=== PATIENT | female | born 1955 | race Caucasian/White ===

== ENCOUNTER 2021-02-24 15:33 | Inpatient (IN) ==
[2021-02-24] MEDS ORDERED: Isovue-370 500 ML BOTTLE IVP ONE (16:18)
[2021-02-24] MEDS ORDERED: Ondansetron 4 MG/2 ML VIAL IVP PRN ×2 (16:19→20:41)
[2021-02-24] MEDS ORDERED: Pantoprazole 40 MG VIAL IVP ONE (16:19)
[2021-02-24] MEDS ORDERED: Famotidine 20 MG/2 ML VIAL IVP ONE (16:19)
[2021-02-24] MEDS ORDERED: 0.9 % Sodium Chloride 500 ML IV ONE (16:19)
[2021-02-24 16:36] LABS: Basophils % 0.2 %; Eosinophils # 0.1 K/mcL (0.0-0.6); Eosinophils % 0.6 %; Hematocrit 40.7 % (35.3-44.9); Hemoglobin 13.7 g/dL (11.5-15.4); Immature Granulocytes % 0.4 % (0-4); Lymphocytes # 2.2 K/mcL (0.6-4.6); Lymphocytes % 17.5 %; Mean Corpuscular HGB Conc 33.7 g/dL (31.6-35.5); Mean Corpuscular Hemoglobin 31.5 pg (28.0-33.3); Mean Corpuscular Volume 93.6 fL (83.0-100.0); Mean Platelet Volume 10.4 fL (9.4-12.4); Monocytes # 1.1 K/mcL (0.0-1.3); Monocytes % 8.5 %; Neutrophils # 9.2 K/mcL (1.6-8.9); Platelet Count 405 K/mcL (140-400); Red Blood Count 4.35 M/mcL (3.82-4.97); Segmented Neutrophils % 72.8 %; White Blood Count 12.7 K/mcL (4.3-11.1)
[2021-02-24 16:45] LABS: Prothrombin Time 10.8 Seconds (9.4-12.1)
[2021-02-24 16:48] LABS: Activated Partial Thrombo Time 31.2 Seconds (26.0-36.0)
[2021-02-24 16:53] LABS: Bilirubin,Urine Negative (Negative); Blood,Urine Negative (Negative); Clarity,Urine Clear (Clear); Color,Urine Light-Yellow (Yellow); Glucose,Urine (UA) Normal (Normal); Ketones,Urine Negative (Negative); Leukocyte Esterase,Urine Negative (Negative); Nitrite,Urine Negative (Negative); Protein,Urine Negative (Neg-Trace); Specific Gravity,Urine 1.005 (1.010-1.025); Urobilinogen,Urine Normal (Normal)
[2021-02-24 18:26] LABS: Alanine Aminotransferase 16 Units/L (7-52); Albumin 2.7 g/dL (3.5-5.7); Alkaline Phosphatase 98 Units/L (34-104); Amylase 25 Units/L (29-103); Aspartate Amino Transferase 17 Units/L (13-39); BUN/Creatinine Ratio 29 (6-26); Bilirubin,Direct 0.2 mg/dL (0.0-0.2); Bilirubin,Indirect 0.3 mg/dL (0.0-1.0); Bilirubin,Total 0.5 mg/dL (0.3-1.0); Blood Urea Nitrogen 13 mg/dL (8-23); Calcium 8.1 mg/dL (8.6-10.3); Carbon Dioxide 30 mEq/L (23-29); Chloride 104 mEq/L (98-107); Globulin 2.7 g/dL (2.4-3.5); Glucose 143 mg/dL (70-105); Lipase 12 Units/L (11-82); Osmolality,Calculated 289 (280-300); Potassium 3.7 mEq/L (3.5-5.1); Sodium 138 mEq/L (136-145); Total Protein 5.4 g/dL (6.4-8.9); eGFR For African Americans > 60 (> 60); eGFR For Non-African Americans > 60 (> 60)
[2021-02-24] MEDS ORDERED: Naloxone 0.4 MG/ML INJ IVP PRN (20:41)
[2021-02-24] MEDS ORDERED: 0.9 % Sodium Chloride 1,000 ML IVC SCH (23:15)
[2021-02-24] MEDS: Nicotine 21 MG PATCH.TD24 TD SCH (23:32)
[2021-02-25 05:08] LABS: Basophils % 0.2 %; Eosinophils # 0.1 K/mcL (0.0-0.6); Eosinophils % 0.7 %; Hematocrit 40.1 % (35.3-44.9); Hemoglobin 13.6 g/dL (11.5-15.4); Immature Granulocytes % 0.3 % (0-4); Lymphocytes # 2.2 K/mcL (0.6-4.6); Lymphocytes % 17.8 %; Mean Corpuscular HGB Conc 33.9 g/dL (31.6-35.5); Mean Corpuscular Hemoglobin 31.8 pg (28.0-33.3); Mean Corpuscular Volume 93.7 fL (83.0-100.0); Mean Platelet Volume 9.8 fL (9.4-12.4); Monocytes # 1.1 K/mcL (0.0-1.3); Monocytes % 9.4 %; Neutrophils # 8.7 K/mcL (1.6-8.9); Platelet Count 338 K/mcL (140-400); Red Blood Count 4.28 M/mcL (3.82-4.97); Red Cell Distribution Width 14.8 % (11.5-14.5); Segmented Neutrophils % 71.6 %; White Blood Count 12.1 K/mcL (4.3-11.1)
[2021-02-25 05:28] LABS: BUN/Creatinine Ratio 22 (6-26); Blood Urea Nitrogen 9 mg/dL (8-23); Carbon Dioxide 30 mEq/L (23-29); Chloride 105 mEq/L (98-107); Glucose 99 mg/dL (70-105); Magnesium 1.9 mg/dL (1.6-2.6); Osmolality,Calculated 287 (280-300); Potassium 3.6 mEq/L (3.5-5.1); Sodium 139 mEq/L (136-145); eGFR For African Americans > 60 (> 60); eGFR For Non-African Americans > 60 (> 60)
[2021-02-25 08:19] LABS: Estimated Average Glucose 114 mg/dl; Hemoglobin A1C 5.6 %
[2021-02-25] MEDS: Pantoprazole 40 MG VIAL IVP SCH (09:55)
[2021-02-25] MEDS: amLODIPine 5 MG TABLET PO SCH (13:14)
[2021-02-25] MEDS: D5% in 0.45% NACL w KCl 10 MEQ/1,000 ML MLS IVC SCH (13:14)
[2021-02-25 15:16] LABS: % Iron Saturation 16 % (15-50); Iron 25 mcg/dL (50-170); Transferrin 112 mg/dL (203-362)
[2021-02-25 15:33] LABS: C-Reactive Protein 23 mg/L (Less than 10)
[2021-02-25 15:35] LABS: Ferritin 248 ng/mL (10-120)
[2021-02-25 15:41] LABS: Folate 22.3 ng/mL (3.0-16.0)
[2021-02-25] MEDS: *HR* Heparin 5,000 UNIT/ML VIAL SQ SCH (17:45)
[2021-02-25] MEDS: Nicotine 21 MG PATCH.TD24 TD SCH (22:11)
[2021-02-26 02:55] LABS: Hematocrit 40.4 % (35.3-44.9); Hemoglobin 13.5 g/dL (11.5-15.4); Mean Corpuscular HGB Conc 33.4 g/dL (31.6-35.5); Mean Corpuscular Hemoglobin 31.2 pg (28.0-33.3); Mean Corpuscular Volume 93.3 fL (83.0-100.0); Platelet Count 363 K/mcL (140-400); Red Blood Count 4.33 M/mcL (3.82-4.97); Red Cell Distribution Width 14.9 % (11.5-14.5); White Blood Count 10.4 K/mcL (4.3-11.1)
[2021-02-26 03:18] LABS: BUN/Creatinine Ratio 11 (6-26); Blood Urea Nitrogen 4 mg/dL (8-23); Calcium 7.9 mg/dL (8.6-10.3); Carbon Dioxide 29 mEq/L (23-29); Chloride 103 mEq/L (98-107); Glucose 119 mg/dL (70-105); Magnesium 1.7 mg/dL (1.6-2.6); Osmolality,Calculated 282 (280-300); Phosphorous 2.6 mg/dL (2.7-4.5); Potassium 3.6 mEq/L (3.5-5.1); Sodium 137 mEq/L (136-145); eGFR For African Americans > 60 (> 60); eGFR For Non-African Americans > 60 (> 60)
[2021-02-26] MEDS: D5% in 0.45% NACL w KCl 10 MEQ/1,000 ML MLS IVC SCH ×2 (03:33→16:36)
[2021-02-26] MEDS: *HR* Heparin 5,000 UNIT/ML VIAL SQ SCH ×2 (04:58→19:19)
[2021-02-26] MEDS: Pantoprazole 40 MG VIAL IVP SCH (08:07)
[2021-02-26] MEDS: amLODIPine 5 MG TABLET PO SCH (08:08)
[2021-02-26] MEDS ORDERED: Potassium Phosphate 44 MEQ in 0.9 % Sodium Chloride 250 ML IVPB ONE (08:30)
[2021-02-26] MEDS ORDERED: Lidocaine -MPF 2% 5 ML VIAL ONE (13:36)
[2021-02-26] MEDS: Piperacillin/Tazobactam 3.375 GM in 0.9 % Sodium Chloride Mini Bag 100 ML IVPB SCH (17:19)
[2021-02-26] MEDS: Nicotine 21 MG PATCH.TD24 TD SCH (19:33)
[2021-02-27] MEDS: Piperacillin/Tazobactam 3.375 GM in 0.9 % Sodium Chloride Mini Bag 100 ML IVPB SCH ×4 (00:48→23:58)
[2021-02-27] MEDS ORDERED: Hyaluronidase 200 UNIT in 0.9 % Sodium Chloride 10 ML SQ ONE (01:07)
[2021-02-27] MEDS: *HR* Heparin 5,000 UNIT/ML VIAL SQ SCH ×2 (05:12→18:03)
[2021-02-27] MEDS: D5% in 0.45% NACL w KCl 10 MEQ/1,000 ML MLS IVC SCH ×2 (05:22→10:46)
[2021-02-27 05:51] LABS: Basophils % 0.3 %; Eosinophils # 0.1 K/mcL (0.0-0.6); Eosinophils % 1.2 %; Hematocrit 34.8 % (35.3-44.9); Hemoglobin 12.2 g/dL (11.5-15.4); Immature Granulocytes % 0.3 % (0-4); Lymphocytes # 2.1 K/mcL (0.6-4.6); Lymphocytes % 20.3 %; Mean Corpuscular HGB Conc 35.1 g/dL (31.6-35.5); Mean Corpuscular Hemoglobin 32.5 pg (28.0-33.3); Mean Corpuscular Volume 92.8 fL (83.0-100.0); Mean Platelet Volume 10.3 fL (9.4-12.4); Monocytes % 9.2 %; Neutrophils # 7.3 K/mcL (1.6-8.9); Platelet Count 346 K/mcL (140-400); Red Blood Count 3.75 M/mcL (3.82-4.97); Red Cell Distribution Width 15.2 % (11.5-14.5); Segmented Neutrophils % 68.7 %; White Blood Count 10.6 K/mcL (4.3-11.1)
[2021-02-27 05:53] LABS: Hematocrit 34.8 % (35.3-44.9); Hemoglobin 12.2 g/dL (11.5-15.4); Mean Corpuscular HGB Conc 35.1 g/dL (31.6-35.5); Mean Corpuscular Hemoglobin 32.4 pg (28.0-33.3); Mean Corpuscular Volume 92.6 fL (83.0-100.0); Mean Platelet Volume 10.3 fL (9.4-12.4); Platelet Count 336 K/mcL (140-400); Red Blood Count 3.76 M/mcL (3.82-4.97); Red Cell Distribution Width 15.1 % (11.5-14.5); White Blood Count 10.5 K/mcL (4.3-11.1)
[2021-02-27 07:17] LABS: BUN/Creatinine Ratio 9 (6-26); Blood Urea Nitrogen 3 mg/dL (8-23); Calcium 7.8 mg/dL (8.6-10.3); Carbon Dioxide 29 mEq/L (23-29); Chloride 108 mEq/L (98-107); Glucose 78 mg/dL (70-105); Osmolality,Calculated 289 (280-300); Phosphorous 3.1 mg/dL (2.7-4.5); Potassium 3.4 mEq/L (3.5-5.1); Sodium 142 mEq/L (136-145); eGFR For African Americans > 60 (> 60); eGFR For Non-African Americans > 60 (> 60)
[2021-02-27] MEDS: Pantoprazole 40 MG VIAL IVP SCH (08:51)
[2021-02-27] MEDS: amLODIPine 5 MG TABLET PO SCH (08:52)
[2021-02-27] MEDS: Gabapentin 400 MG CAPSULE PO SCH ×2 (14:56→20:01)
[2021-02-27] MEDS: Nicotine 21 MG PATCH.TD24 TD SCH (20:01)
[2021-02-28 04:56] LABS: Hematocrit 33.5 % (35.3-44.9); Hemoglobin 11.3 g/dL (11.5-15.4); Mean Corpuscular HGB Conc 33.7 g/dL (31.6-35.5); Mean Corpuscular Hemoglobin 31.8 pg (28.0-33.3); Mean Corpuscular Volume 94.4 fL (83.0-100.0); Mean Platelet Volume 10.5 fL (9.4-12.4); Platelet Count 311 K/mcL (140-400); Red Blood Count 3.55 M/mcL (3.82-4.97); Red Cell Distribution Width 15.2 % (11.5-14.5); White Blood Count 6.9 K/mcL (4.3-11.1)
[2021-02-28 05:16] LABS: BUN/Creatinine Ratio 12 (6-26); Blood Urea Nitrogen 4 mg/dL (8-23); Calcium 7.3 mg/dL (8.6-10.3); Carbon Dioxide 26 mEq/L (23-29); Chloride 114 mEq/L (98-107); Glucose 90 mg/dL (70-105); Magnesium 1.8 mg/dL (1.6-2.6); Osmolality,Calculated 278 (280-300); Phosphorous 2.8 mg/dL (2.7-4.5); Potassium 3.2 mEq/L (3.5-5.1); Sodium 136 mEq/L (136-145); eGFR For African Americans > 60 (> 60); eGFR For Non-African Americans > 60 (> 60)
[2021-02-28] MEDS: *HR* Heparin 5,000 UNIT/ML VIAL SQ SCH ×2 (05:30→16:33)
[2021-02-28] MEDS: D5% in 0.45% NACL w KCl 10 MEQ/1,000 ML MLS IVC SCH ×2 (05:31→16:34)
[2021-02-28] MEDS ORDERED: Vitamin B Complex/Vit C/Vit E 1 EACH TABLET PO SCH (09:00)
[2021-02-28] MEDS ORDERED: Lidocaine -MPF 2% 5 ML VIAL ONE (09:32)
[2021-02-28] MEDS ORDERED: *HR* Propofol 200 MG/20 ML VIAL IVP ONE (09:33)
[2021-02-28] MEDS ORDERED: *HR* FentaNYL (PF) 100 MCG/2 ML VIAL ONE (09:33)
[2021-02-28] MEDS ORDERED: *HR* OxyCODONE Immed Rel 5 MG TABLET PO PRN ×2 (09:40→15:10)
[2021-02-28] MEDS ORDERED: *HR* HYDROmorphone PF 0.5 MG/0.5 ML SYRINGE IVP PRN ×2 (09:40→15:10)
[2021-02-28] MEDS ORDERED: Ondansetron 4 MG/2 ML VIAL IVP PRN ×2 (09:40→15:10)
[2021-02-28] MEDS ORDERED: Bupivacaine/Clonidine Syringe 20 ML, Syringe LUER-LOK 1 EACH TP ONE (10:30)
[2021-02-28] MEDS: Piperacillin/Tazobactam 3.375 GM in 0.9 % Sodium Chloride Mini Bag 100 ML IVPB SCH ×2 (10:44→16:34)
[2021-02-28 10:51] LABS: Immunoglobulin A (CELIAC) 296 mg/dL (68-408); Tissue Transglutaminase IgA <2 U/mL (0-3)
[2021-02-28 10:56] LABS: C-Reactive Protein 21 mg/L (Less than 10)
[2021-02-28] MEDS: Pantoprazole 40 MG VIAL IVP SCH (13:14)
[2021-02-28] MEDS: Gabapentin 400 MG CAPSULE PO SCH ×3 (13:15→20:52)
[2021-02-28] MEDS: amLODIPine 5 MG TABLET PO SCH (13:15)
[2021-02-28] MEDS ORDERED: Naloxone 0.4 MG/ML INJ IVP PRN (15:10)
[2021-02-28] MEDS: Nicotine 21 MG PATCH.TD24 TD SCH (20:53)
[2021-03-01] MEDS: Piperacillin/Tazobactam 3.375 GM in 0.9 % Sodium Chloride Mini Bag 100 ML IVPB SCH ×3 (00:38→17:19)
[2021-03-01] MEDS: *HR* Heparin 5,000 UNIT/ML VIAL SQ SCH ×2 (05:15→17:10)
[2021-03-01] MEDS: D5% in 0.45% NACL w KCl 10 MEQ/1,000 ML MLS IVC SCH (05:17)
[2021-03-01] MEDS: Pantoprazole 40 MG VIAL IVP SCH (10:51)
[2021-03-01] MEDS: Vitamin B Complex/Vit C/Vit E 1 EACH TABLET PO SCH (10:51)
[2021-03-01] MEDS: amLODIPine 5 MG TABLET PO SCH ×2 (10:51→11:12)
[2021-03-01] MEDS: Gabapentin 400 MG CAPSULE PO SCH ×3 (10:51→20:55)
[2021-03-01] MEDS: Zinc Gluconate 100 MG Tablet PO SCH (10:52)
[2021-03-01] MEDS: Nicotine 21 MG PATCH.TD24 TD SCH (20:55)
[2021-03-02] MEDS: Piperacillin/Tazobactam 3.375 GM in 0.9 % Sodium Chloride Mini Bag 100 ML IVPB SCH ×2 (00:48→11:07)
[2021-03-02] MEDS: D5% in 0.45% NACL w KCl 10 MEQ/1,000 ML MLS IVC SCH ×2 (00:48→09:48)
[2021-03-02] MEDS: *HR* Heparin 5,000 UNIT/ML VIAL SQ SCH ×2 (05:16→17:37)
[2021-03-02 05:57] LABS: eGFR For African Americans > 60 (> 60); eGFR For Non-African Americans > 60 (> 60)
[2021-03-02] MEDS: Vitamin B Complex/Vit C/Vit E 1 EACH TABLET PO SCH (09:47)
[2021-03-02] MEDS: Gabapentin 400 MG CAPSULE PO SCH ×3 (09:47→22:10)
[2021-03-02] MEDS: amLODIPine 5 MG TABLET PO SCH (09:48)
[2021-03-02] MEDS: Zinc Gluconate 100 MG Tablet PO SCH (09:49)
[2021-03-02] MEDS: Pantoprazole 40 MG VIAL IVP SCH (09:49)
[2021-03-02] MEDS: Nicotine 21 MG PATCH.TD24 TD SCH (22:45)
[2021-03-03] MEDS: *HR* Heparin 5,000 UNIT/ML VIAL SQ SCH ×2 (05:17→15:42)
[2021-03-03] MEDS: D5% in 0.45% NACL w KCl 10 MEQ/1,000 ML MLS IVC SCH ×3 (09:11→21:07)
[2021-03-03] MEDS: amLODIPine 5 MG TABLET PO SCH (09:11)
[2021-03-03] MEDS: Pantoprazole 40 MG VIAL IVP SCH (09:11)
[2021-03-03] MEDS: Vitamin B Complex/Vit C/Vit E 1 EACH TABLET PO SCH (09:11)
[2021-03-03] MEDS: Gabapentin 400 MG CAPSULE PO SCH ×3 (09:11→21:08)
[2021-03-03] MEDS: Zinc Gluconate 100 MG Tablet PO SCH (09:12)
[2021-03-03] MEDS: Ondansetron 4 MG/2 ML VIAL IVP PRN (12:12)
[2021-03-03] MEDS: Nicotine 21 MG PATCH.TD24 TD SCH (20:46)
[2021-03-04] MEDS: *HR* Heparin 5,000 UNIT/ML VIAL SQ SCH ×2 (06:34→18:05)
[2021-03-04] MEDS: Gabapentin 400 MG CAPSULE PO SCH ×3 (08:13→19:47)
[2021-03-04] MEDS: Vitamin B Complex/Vit C/Vit E 1 EACH TABLET PO SCH (08:13)
[2021-03-04] MEDS: Pantoprazole 40 MG VIAL IVP SCH (08:13)
[2021-03-04] MEDS: amLODIPine 5 MG TABLET PO SCH (08:13)
[2021-03-04] MEDS: Zinc Gluconate 100 MG Tablet PO SCH (08:48)
[2021-03-04] MEDS: D5% in 0.45% NACL w KCl 10 MEQ/1,000 ML MLS IVC SCH (10:27)
[2021-03-04] MEDS: Ondansetron 4 MG/2 ML VIAL IVP PRN (15:12)
[2021-03-04] MEDS ORDERED: amLODIPine 5 MG TABLET PO ONE (15:30)
[2021-03-04] MEDS: Nicotine 21 MG PATCH.TD24 TD SCH (20:02)
[2021-03-05] MEDS: D5% in 0.45% NACL w KCl 10 MEQ/1,000 ML MLS IVC SCH ×2 (00:43→14:14)
[2021-03-05] MEDS: *HR* Heparin 5,000 UNIT/ML VIAL SQ SCH (05:35)
[2021-03-05] MEDS ORDERED: amLODIPine 5 MG TABLET PO SCH (09:00)
[2021-03-05 09:07] LABS: Hemoglobin 12.4 g/dL (11.5-15.4); Mean Corpuscular HGB Conc 34.4 g/dL (31.6-35.5); Mean Corpuscular Hemoglobin 32.1 pg (28.0-33.3); Mean Corpuscular Volume 93.3 fL (83.0-100.0); Mean Platelet Volume 10.4 fL (9.4-12.4); Platelet Count 415 K/mcL (140-400); Red Blood Count 3.86 M/mcL (3.82-4.97); Red Cell Distribution Width 14.9 % (11.5-14.5); White Blood Count 9.3 K/mcL (4.3-11.1)
[2021-03-05 09:28] LABS: BUN/Creatinine Ratio 8 (6-26); Blood Urea Nitrogen 2 mg/dL (8-23); Carbon Dioxide 28 mEq/L (23-29); Chloride 104 mEq/L (98-107); Glucose 99 mg/dL (70-105); Osmolality,Calculated 278 (280-300); Potassium 3.7 mEq/L (3.5-5.1); Sodium 136 mEq/L (136-145); eGFR For African Americans > 60 (> 60); eGFR For Non-African Americans > 60 (> 60)
[2021-03-05] MEDS: Ondansetron 4 MG/2 ML VIAL IVP PRN (11:50)
[2021-03-05] MEDS: Vitamin B Complex/Vit C/Vit E 1 EACH TABLET PO SCH (11:50)
[2021-03-05] MEDS: Pantoprazole 40 MG VIAL IVP SCH (11:50)
[2021-03-05] MEDS: Gabapentin 400 MG CAPSULE PO SCH ×2 (11:50→14:13)
[2021-03-05] MEDS: Zinc Gluconate 100 MG Tablet PO SCH (11:51)
[2021-03-05 14:37] VITALS: BP 131/55; PULSE 69; TEMP 98.1; O2SAT 96
[2021-03-05 16:54] LABS: Influenza A PCR Negative (Negative); Influenza B PCR Negative (Negative); Resp. Syncytial Virus PCR Negative (Negative)
[2021-03-05 16:56] LABS: SARS-CoV-2 by PCR (In House) Negative (Negative)
[2021-03-06 13:02] LABS: Saccharomyces cerevisiae IgA 15.9 Units (0.0-24.9)
== END 2021-03-05 19:00 | disposition home or self-care (01) | DRG 981 ==
LOC: 3BNU 15:33 → EMEROOARM 15:33 → SUATTDRO 20:25 → 3BNU 21:05 → SUATTDRO 02-26 12:03
PROVIDERS: ADMIT Internal Medicine; ATTEND Registered Nurse
PROC: ENDOCBX (2021-02-26 14:05)

== ENCOUNTER 2021-04-21 13:04 | Inpatient (IN) ==
[2021-04-21] MEDS ORDERED: Ondansetron 4 MG/2 ML VIAL IVP ONE (13:19)
[2021-04-21] MEDS ORDERED: 0.9 % Sodium Chloride 1,000 ML IVC ONE ×2 (13:19→14:20)
[2021-04-21] MEDS ORDERED: Thiamine (B-1) 200 MG in 0.9 % Sodium Chloride 50 ML IVPB ONE (13:20)
[2021-04-21] MEDS ORDERED: Folic Acid 1 MG in 0.9 % Sodium Chloride 50 ML IVPB ONE (13:20)
[2021-04-21 13:56] LABS: Basophils % 0.2 %; Hematocrit 45.8 % (35.3-44.9); Hemoglobin 15.7 g/dL (11.5-15.4); Lymphocytes # 1.3 K/mcL (0.6-4.6); Lymphocytes % 6.7 %; Mean Corpuscular HGB Conc 34.3 g/dL (31.6-35.5); Mean Corpuscular Hemoglobin 32.4 pg (28.0-33.3); Mean Corpuscular Volume 94.4 fL (83.0-100.0); Mean Platelet Volume 10.6 fL (9.4-12.4); Monocytes # 0.9 K/mcL (0.0-1.3); Monocytes % 4.6 %; Neutrophils # 17.2 K/mcL (1.6-8.9); Platelet Count 350 K/mcL (140-400); Red Blood Count 4.85 M/mcL (3.82-4.97); Red Cell Distribution Width 14.5 % (11.5-14.5); Segmented Neutrophils % 87.5 %; White Blood Count 19.6 K/mcL (4.3-11.1)
[2021-04-21 14:21] LABS: Alanine Aminotransferase 26 Units/L (7-52); Albumin 2.6 g/dL (3.5-5.7); Albumin/Globulin Ratio 0.9 (1.1-2.2); Alkaline Phosphatase 154 Units/L (34-104); Aspartate Amino Transferase 25 Units/L (13-39); BUN/Creatinine Ratio 22 (6-26); Bilirubin,Total 0.8 mg/dL (0.3-1.0); Blood Urea Nitrogen 10 mg/dL (8-23); Calcium 8.4 mg/dL (8.6-10.3); Carbon Dioxide 25 mEq/L (23-29); Chloride 102 mEq/L (98-107); Creatine Kinase 38 Units/L (30-223); Ethanol < 10 mg/dL (Less than 10); Globulin 2.9 g/dL (2.4-3.5); Glucose 134 mg/dL (70-105); Lipase 22 Units/L (11-82); Magnesium 2.1 mg/dL (1.6-2.6); Osmolality,Calculated 285 (280-300); Potassium 3.7 mEq/L (3.5-5.1); Sodium 137 mEq/L (136-145); Total Protein 5.5 g/dL (6.4-8.9); Troponin I 0.03 ng/mL (< 0.04); eGFR For African Americans > 60 (> 60); eGFR For Non-African Americans > 60 (> 60)
[2021-04-21 17:47] LABS: Bacteria,Urine Few per hpf (None-Few); Bilirubin,Urine Negative (Negative); Blood,Urine Moderate (Negative); Clarity,Urine Clear (Clear); Color,Urine Light-Yellow (Yellow); Glucose,Urine (UA) Normal (Normal); Hyaline Casts,Urine Few per lpf (None Seen); Ketones,Urine Negative (Negative); Leukocyte Esterase,Urine Small (Negative); Mucus,Urine Few per lpf (None-Few); Nitrite,Urine Negative (Negative); Protein,Urine Negative (Neg-Trace); RBC,Urine 0-3 per hpf (0-3); Specific Gravity,Urine 1.009 (1.010-1.025); Squamous Epithelial Cell,Urine Few per hpf (None-Few); Urobilinogen,Urine Normal (Normal)
[2021-04-21] MEDS ORDERED: cefTRIAXone 1,000 MG in Water for inj. (sterile) 10 ML IVP ONE (17:50)
[2021-04-21] MEDS ORDERED: Acetaminophen 325 MG TABLET PO PRN (18:00)
[2021-04-21] MEDS ORDERED: Naloxone 0.4 MG/ML INJ IVP PRN (18:00)
[2021-04-21] MEDS ORDERED: Ondansetron 4 MG/2 ML VIAL IVP PRN (18:00)
[2021-04-21] MEDS ORDERED: Melatonin 3 MG TABLET PO PRN (18:00)
[2021-04-21] MEDS ORDERED: Ipratropium/Albuterol Neb 3 ML IH PRN (18:07)
[2021-04-21] MEDS ORDERED: *HR* LORazepam 2 MG/ML VIAL IVP PRN ×3 (18:09)
[2021-04-21 18:15] LABS: Amphetamine Screen,Urine Negative ng/mL (Cutoff=1000); Barbiturate Screen,Urine Negative ng/mL (Cutoff=200); Benzodiazepines Screen,Urine Negative ng/mL (Cutoff=200); Cannabinoid Screen,Urine Negative ng/mL (Cutoff = 50); Cocaine Screen,Urine Negative ng/mL (Cutoff= 300); Opiate Screen,Urine Negative ng/mL (Cutoff=300); Phencyclidine Screen,Urine Negative ng/mL (Cutoff=25)
[2021-04-21] MEDS ORDERED: Isovue-370 500 ML BOTTLE IVP ONE (18:17)
[2021-04-21 18:32] LABS: C-Reactive Protein 134 mg/L (Less than 10)
[2021-04-21] MEDS ORDERED: Dextrose Gel 15 GM/37.5 ML TUBE PO PRN ×2 (18:35)
[2021-04-21] MEDS ORDERED: D5% in Water 1,000 ML IVC PRN (18:35)
[2021-04-22] MEDS: NIFEdipine XL (24 HR) 60 MG TAB.ER.24 PO SCH ×2 (00:17→07:47)
[2021-04-22] MEDS: Lactobacillus 1 EACH CAP.SPRINK PO SCH ×3 (00:17→20:15)
[2021-04-22] MEDS: Piperacillin/Tazobactam 3.375 GM in 0.9 % Sodium Chloride Mini Bag 100 ML IVPB SCH ×3 (00:17→18:45)
[2021-04-22] MEDS: Ringers Solution, Lactated 1,000 ML IVC SCH ×2 (00:17→18:46)
[2021-04-22] MEDS: Calcium Gluconate 1gm/50mL 1 GM/50 ML BAG IVPB SCH ×2 (00:27→01:35)
[2021-04-22] MEDS: Vancomycin 500 MG in 0.9 % Sodium Chloride Mini Bag 100 ML IVPB SCH ×3 (01:18→20:15)
[2021-04-22 01:34] LABS: Basophils # 0.1 K/mcL (0.0-0.2); Basophils % 0.2 %; Hematocrit 45.8 % (35.3-44.9); Hemoglobin 15.5 g/dL (11.5-15.4); Immature Granulocytes % 0.5 % (0-4); Lymphocytes # 1.1 K/mcL (0.6-4.6); Lymphocytes % 4.6 %; Mean Corpuscular HGB Conc 33.8 g/dL (31.6-35.5); Mean Corpuscular Volume 94.6 fL (83.0-100.0); Mean Platelet Volume 9.9 fL (9.4-12.4); Monocytes # 0.8 K/mcL (0.0-1.3); Monocytes % 3.6 %; Platelet Count 374 K/mcL (140-400); Red Blood Count 4.84 M/mcL (3.82-4.97); Red Cell Distribution Width 14.6 % (11.5-14.5); Segmented Neutrophils % 91.1 %; White Blood Count 23.1 K/mcL (4.3-11.1)
[2021-04-22 01:44] LABS: INR 1.1; Prothrombin Time 12.5 Seconds (9.4-12.1)
[2021-04-22 02:05] LABS: Alanine Aminotransferase 25 Units/L (7-52); Albumin 2.6 g/dL (3.5-5.7); Albumin/Globulin Ratio 0.9 (1.1-2.2); Alkaline Phosphatase 146 Units/L (34-104); Aspartate Amino Transferase 25 Units/L (13-39); BUN/Creatinine Ratio 23 (6-26); Bilirubin,Total 0.6 mg/dL (0.3-1.0); Blood Urea Nitrogen 11 mg/dL (8-23); Calcium 8.1 mg/dL (8.6-10.3); Carbon Dioxide 26 mEq/L (23-29); Chloride 104 mEq/L (98-107); Glucose 108 mg/dL (70-105); Osmolality,Calculated 290 (280-300); Potassium 3.7 mEq/L (3.5-5.1); Sodium 140 mEq/L (136-145); Total Protein 5.6 g/dL (6.4-8.9); eGFR For African Americans > 60 (> 60); eGFR For Non-African Americans > 60 (> 60)
[2021-04-22] MEDS: *HR* Enoxaparin 40 MG/0.4 ML SYRINGE SQ SCH (05:18)
[2021-04-22] MEDS: Vitamin B Complex/Vit C/Vit E 1 EACH TABLET PO SCH (07:47)
[2021-04-22] MEDS: Thiamine (B-1) 100 MG TABLET PO SCH (07:47)
[2021-04-22] MEDS: Nicotine 21 MG PATCH.TD24 TD SCH (07:47)
[2021-04-22] MEDS: Folic Acid 1 MG TABLET PO SCH (07:47)
[2021-04-22] MEDS ORDERED: cefTRIAXone 1,000 MG in Water for inj. (sterile) 10 ML IVP SCH (09:00)
[2021-04-22] MEDS ORDERED: Lidocaine -MPF 2% 5 ML VIAL ONE (13:53)
[2021-04-22] MEDS ORDERED: *HR* Midazolam HCl 2 MG/2 ML VIAL ONE (13:53)
[2021-04-22] MEDS ORDERED: Ondansetron 4 MG/2 ML VIAL ONE (13:53)
[2021-04-22] MEDS ORDERED: *HR* FentaNYL (PF) 100 MCG/2 ML VIAL ONE (13:53)
[2021-04-22] MEDS ORDERED: *HR* Propofol 200 MG/20 ML VIAL IVP ONE (13:53)
[2021-04-22] MEDS ORDERED: Famotidine 20 MG/2 ML VIAL IVP ONE (14:30)
[2021-04-22] MEDS ORDERED: Famotidine 20 MG/2 ML VIAL ONE (14:51)
[2021-04-22] MEDS ORDERED: EPHEDrine 50 MG/ML VIAL ONE (15:21)
[2021-04-22] MEDS: Gabapentin 400 MG CAPSULE PO SCH ×2 (18:27→20:15)
[2021-04-22] MEDS: Cyanocobalamin (B-12) 1,000 MCG TABLET PO SCH (20:16)
[2021-04-22] MEDS: *HR* OxyCODONE Immed Rel 5 MG TABLET PO PRN (20:17)
[2021-04-23] MEDS: Piperacillin/Tazobactam 3.375 GM in 0.9 % Sodium Chloride Mini Bag 100 ML IVPB SCH ×4 (00:40→23:37)
[2021-04-23 05:08] LABS: Hematocrit 33.3 % (35.3-44.9); Mean Corpuscular HGB Conc 33.9 g/dL (31.6-35.5); Mean Corpuscular Hemoglobin 32.4 pg (28.0-33.3); Mean Corpuscular Volume 95.4 fL (83.0-100.0); Mean Platelet Volume 10.3 fL (9.4-12.4); Platelet Count 302 K/mcL (140-400); Red Blood Count 3.49 M/mcL (3.82-4.97); Red Cell Distribution Width 15.1 % (11.5-14.5); White Blood Count 23.7 K/mcL (4.3-11.1)
[2021-04-23 05:09] LABS: Hemoglobin 11.3 g/dL (11.5-15.4)
[2021-04-23 05:28] LABS: BUN/Creatinine Ratio 39 (6-26); Blood Urea Nitrogen 15 mg/dL (8-23); Calcium 7.9 mg/dL (8.6-10.3); Carbon Dioxide 28 mEq/L (23-29); Chloride 108 mEq/L (98-107); Glucose 130 mg/dL (70-105); Osmolality,Calculated 295 (280-300); Potassium 3.3 mEq/L (3.5-5.1); Sodium 141 mEq/L (136-145); eGFR For African Americans > 60 (> 60); eGFR For Non-African Americans > 60 (> 60)
[2021-04-23] MEDS: *HR* Enoxaparin 40 MG/0.4 ML SYRINGE SQ SCH (05:53)
[2021-04-23] MEDS: Nicotine 21 MG PATCH.TD24 TD SCH (07:51)
[2021-04-23] MEDS: Vancomycin 500 MG in 0.9 % Sodium Chloride Mini Bag 100 ML IVPB SCH ×2 (07:51→20:28)
[2021-04-23] MEDS: Folic Acid 1 MG TABLET PO SCH (07:52)
[2021-04-23] MEDS: Gabapentin 400 MG CAPSULE PO SCH ×3 (07:52→20:28)
[2021-04-23] MEDS: Thiamine (B-1) 100 MG TABLET PO SCH (07:52)
[2021-04-23] MEDS: Vitamin B Complex/Vit C/Vit E 1 EACH TABLET PO SCH (07:52)
[2021-04-23] MEDS: Lactobacillus 1 EACH CAP.SPRINK PO SCH ×2 (07:52→20:28)
[2021-04-23] MEDS: Cyanocobalamin (B-12) 1,000 MCG TABLET PO SCH ×2 (07:52→20:28)
[2021-04-23] MEDS: NIFEdipine XL (24 HR) 60 MG TAB.ER.24 PO SCH (07:52)
[2021-04-24 05:49] LABS: Hematocrit 36.8 % (35.3-44.9); Hemoglobin 12.5 g/dL (11.5-15.4); Mean Corpuscular Hemoglobin 32.8 pg (28.0-33.3); Mean Corpuscular Volume 96.6 fL (83.0-100.0); Mean Platelet Volume 10.2 fL (9.4-12.4); Platelet Count 293 K/mcL (140-400); Red Blood Count 3.81 M/mcL (3.82-4.97); Red Cell Distribution Width 15.7 % (11.5-14.5); White Blood Count 20.9 K/mcL (4.3-11.1)
[2021-04-24] MEDS: *HR* Enoxaparin 30 MG/0.3 ML SYRINGE SQ SCH (06:04)
[2021-04-24 08:12] LABS: BUN/Creatinine Ratio 50 (6-26); Blood Urea Nitrogen 16 mg/dL (8-23); Carbon Dioxide 21 mEq/L (23-29); Chloride 109 mEq/L (98-107); Glucose 114 mg/dL (70-105); Osmolality,Calculated 286 (280-300); Sodium 137 mEq/L (136-145); eGFR For African Americans > 60 (> 60); eGFR For Non-African Americans > 60 (> 60)
[2021-04-24] MEDS: Folic Acid 1 MG TABLET PO SCH (08:31)
[2021-04-24] MEDS: Piperacillin/Tazobactam 3.375 GM in 0.9 % Sodium Chloride Mini Bag 100 ML IVPB SCH ×2 (08:31→15:11)
[2021-04-24] MEDS: Gabapentin 400 MG CAPSULE PO SCH ×3 (08:31→22:39)
[2021-04-24] MEDS: Thiamine (B-1) 100 MG TABLET PO SCH (08:31)
[2021-04-24] MEDS: Cyanocobalamin (B-12) 1,000 MCG TABLET PO SCH ×2 (08:31→22:38)
[2021-04-24] MEDS: NIFEdipine XL (24 HR) 60 MG TAB.ER.24 PO SCH (08:31)
[2021-04-24] MEDS: Lactobacillus 1 EACH CAP.SPRINK PO SCH ×2 (08:31→22:39)
[2021-04-24] MEDS: Nicotine 21 MG PATCH.TD24 TD SCH (08:31)
[2021-04-24] MEDS: Vitamin B Complex/Vit C/Vit E 1 EACH TABLET PO SCH (08:31)
[2021-04-24] MEDS: *HR* OxyCODONE Immed Rel 5 MG TABLET PO PRN (11:59)
[2021-04-25] MEDS: Piperacillin/Tazobactam 3.375 GM in 0.9 % Sodium Chloride Mini Bag 100 ML IVPB SCH ×4 (00:20→23:46)
[2021-04-25] MEDS: *HR* Enoxaparin 30 MG/0.3 ML SYRINGE SQ SCH (05:26)
[2021-04-25 05:59] LABS: Hematocrit 40.9 % (35.3-44.9); Hemoglobin 13.2 g/dL (11.5-15.4); Mean Corpuscular HGB Conc 32.3 g/dL (31.6-35.5); Mean Corpuscular Hemoglobin 31.4 pg (28.0-33.3); Mean Corpuscular Volume 97.4 fL (83.0-100.0); Mean Platelet Volume 10.6 fL (9.4-12.4); Platelet Count 237 K/mcL (140-400); Red Cell Distribution Width 15.3 % (11.5-14.5); White Blood Count 21.6 K/mcL (4.3-11.1)
[2021-04-25 06:05] LABS: BUN/Creatinine Ratio 39 (6-26); Blood Urea Nitrogen 18 mg/dL (8-23); Calcium 8.2 mg/dL (8.6-10.3); Carbon Dioxide 25 mEq/L (23-29); Chloride 106 mEq/L (98-107); Glucose 103 mg/dL (70-105); Osmolality,Calculated 284 (280-300); Sodium 136 mEq/L (136-145); Vancomycin,Trough 17 mcg/mL (5-10); eGFR For African Americans > 60 (> 60); eGFR For Non-African Americans > 60 (> 60)
[2021-04-25] MEDS: Vitamin B Complex/Vit C/Vit E 1 EACH TABLET PO SCH (07:37)
[2021-04-25] MEDS: Cyanocobalamin (B-12) 1,000 MCG TABLET PO SCH ×2 (07:37→20:36)
[2021-04-25] MEDS: Thiamine (B-1) 100 MG TABLET PO SCH (07:37)
[2021-04-25] MEDS: Lactobacillus 1 EACH CAP.SPRINK PO SCH ×2 (07:37→20:36)
[2021-04-25] MEDS: Folic Acid 1 MG TABLET PO SCH (07:37)
[2021-04-25] MEDS: NIFEdipine XL (24 HR) 60 MG TAB.ER.24 PO SCH (07:37)
[2021-04-25] MEDS: Gabapentin 400 MG CAPSULE PO SCH ×3 (07:37→20:36)
[2021-04-25] MEDS: *HR* OxyCODONE Immed Rel 5 MG TABLET PO PRN (07:38)
[2021-04-25] MEDS: Nicotine 21 MG PATCH.TD24 TD SCH (07:38)
[2021-04-25] MEDS: Nystatin SUSP 5 ML UD.LIQ PO SCH ×3 (13:21→20:37)
[2021-04-26 03:27] LABS: Hematocrit 43.6 % (35.3-44.9); Hemoglobin 14.2 g/dL (11.5-15.4); Mean Corpuscular HGB Conc 32.6 g/dL (31.6-35.5); Mean Corpuscular Hemoglobin 31.8 pg (28.0-33.3); Mean Corpuscular Volume 97.5 fL (83.0-100.0); Mean Platelet Volume 10.4 fL (9.4-12.4); Platelet Count 247 K/mcL (140-400); Red Blood Count 4.47 M/mcL (3.82-4.97); Red Cell Distribution Width 15.1 % (11.5-14.5); White Blood Count 18.9 K/mcL (4.3-11.1)
[2021-04-26 03:47] LABS: BUN/Creatinine Ratio 42 (6-26); Blood Urea Nitrogen 19 mg/dL (8-23); Calcium 8.1 mg/dL (8.6-10.3); Carbon Dioxide 23 mEq/L (23-29); Chloride 108 mEq/L (98-107); Glucose 67 mg/dL (70-105); Osmolality,Calculated 287 (280-300); Potassium 4.2 mEq/L (3.5-5.1); Sodium 138 mEq/L (136-145); eGFR For African Americans > 60 (> 60); eGFR For Non-African Americans > 60 (> 60)
[2021-04-26] MEDS: *HR* Enoxaparin 30 MG/0.3 ML SYRINGE SQ SCH (05:23)
[2021-04-26] MEDS: Piperacillin/Tazobactam 3.375 GM in 0.9 % Sodium Chloride Mini Bag 100 ML IVPB SCH ×3 (09:07→20:10)
[2021-04-26] MEDS: Nystatin SUSP 5 ML UD.LIQ PO SCH ×4 (09:07→20:18)
[2021-04-26] MEDS: Vitamin B Complex/Vit C/Vit E 1 EACH TABLET PO SCH (09:07)
[2021-04-26] MEDS: Thiamine (B-1) 100 MG TABLET PO SCH (09:07)
[2021-04-26] MEDS: Folic Acid 1 MG TABLET PO SCH (09:08)
[2021-04-26] MEDS: Lactobacillus 1 EACH CAP.SPRINK PO SCH ×2 (09:08→20:00)
[2021-04-26] MEDS: NIFEdipine XL (24 HR) 60 MG TAB.ER.24 PO SCH (09:08)
[2021-04-26] MEDS: Gabapentin 400 MG CAPSULE PO SCH ×3 (09:08→20:00)
[2021-04-26] MEDS: Nicotine 21 MG PATCH.TD24 TD SCH (09:08)
[2021-04-26] MEDS: Cyanocobalamin (B-12) 1,000 MCG TABLET PO SCH ×2 (09:08→20:19)
[2021-04-26] MEDS: *HR* Dextrose 50 % in Water (Syg) 50 ML SYRINGE IVP PRN (16:52)
[2021-04-26] MEDS ORDERED: 0.9 % Sodium Chloride 1,000 ML IV ONE (23:41)
[2021-04-27 03:04] LABS: Hematocrit 37.9 % (35.3-44.9); Hemoglobin 12.9 g/dL (11.5-15.4); Mean Corpuscular Hemoglobin 32.6 pg (28.0-33.3); Mean Corpuscular Volume 95.7 fL (83.0-100.0); Mean Platelet Volume 10.7 fL (9.4-12.4); Platelet Count 335 K/mcL (140-400); Red Blood Count 3.96 M/mcL (3.82-4.97); Red Cell Distribution Width 15.1 % (11.5-14.5); White Blood Count 13.8 K/mcL (4.3-11.1)
[2021-04-27] MEDS: Piperacillin/Tazobactam 3.375 GM in 0.9 % Sodium Chloride Mini Bag 100 ML IVPB SCH (04:03)
[2021-04-27] MEDS: *HR* Enoxaparin 30 MG/0.3 ML SYRINGE SQ SCH (06:09)
[2021-04-27] MEDS ORDERED: levoFLOXacin 750 MG TABLET PO SCH (09:00)
[2021-04-27] MEDS: Folic Acid 1 MG TABLET PO SCH (09:12)
[2021-04-27] MEDS: NIFEdipine XL (24 HR) 60 MG TAB.ER.24 PO SCH (09:12)
[2021-04-27] MEDS: Thiamine (B-1) 100 MG TABLET PO SCH (09:12)
[2021-04-27] MEDS: Lactobacillus 1 EACH CAP.SPRINK PO SCH ×2 (09:12→22:24)
[2021-04-27] MEDS: Nicotine 21 MG PATCH.TD24 TD SCH (09:13)
[2021-04-27] MEDS: Doxycycline 100 MG CAPSULE PO SCH ×2 (09:13→22:24)
[2021-04-27] MEDS: Gabapentin 400 MG CAPSULE PO SCH ×3 (09:13→22:24)
[2021-04-27] MEDS: Nystatin SUSP 5 ML UD.LIQ PO SCH ×4 (09:14→22:24)
[2021-04-27] MEDS: Vitamin B Complex/Vit C/Vit E 1 EACH TABLET PO SCH (09:14)
[2021-04-27] MEDS: Cyanocobalamin (B-12) 1,000 MCG TABLET PO SCH ×2 (09:14→22:25)
[2021-04-27] MEDS ORDERED: 0.9 % Sodium Chloride 500 ML IVC ONE ×2 (12:00→15:16)
[2021-04-27] MEDS ORDERED: Albumin 25% 25gram/100mL 25 GM/100 ML IV.SOLN IVPB ONE ×2 (15:19→17:33)
[2021-04-27] MEDS ORDERED: 0.9 % Sodium Chloride 1,000 ML IVC ONE (15:50)
[2021-04-27 16:53] LABS: Hematocrit 36.9 % (35.3-44.9); Hemoglobin 12.6 g/dL (11.5-15.4); Mean Corpuscular HGB Conc 34.1 g/dL (31.6-35.5); Mean Corpuscular Hemoglobin 32.8 pg (28.0-33.3); Mean Corpuscular Volume 96.1 fL (83.0-100.0); Mean Platelet Volume 10.8 fL (9.4-12.4); Nucleated Red Blood Cells 0.4 /100 WBC (0); Platelet Count 333 K/mcL (140-400); Red Blood Count 3.84 M/mcL (3.82-4.97); Red Cell Distribution Width 15.4 % (11.5-14.5); White Blood Count 18.5 K/mcL (4.3-11.1)
[2021-04-27 17:05] LABS: BUN/Creatinine Ratio 27 (6-26); Blood Urea Nitrogen 31 mg/dL (8-23); Calcium 8.4 mg/dL (8.6-10.3); Carbon Dioxide 18 mEq/L (23-29); Chloride 106 mEq/L (98-107); Creatine Kinase 41 Units/L (30-223); Glucose 82 mg/dL (70-105); Osmolality,Calculated 292 (280-300); Potassium 4.9 mEq/L (3.5-5.1); Sodium 138 mEq/L (136-145); eGFR For African Americans 58 (> 60); eGFR For Non-African Americans 48 (> 60)
[2021-04-27 17:20] LABS: Lymphocytes # 0.7 K/mcL (0.6-4.6); Monocytes # 1.5 K/mcL (0.0-1.3); Neutrophils # 16.3 K/mcL (1.6-8.9)
[2021-04-27 17:21] LABS: Platelet Estimate Normal (Normal)
[2021-04-27] MEDS: *HR* Dextrose 50 % in Water (Syg) 50 ML SYRINGE IVP PRN (22:29)
[2021-04-27 22:37] LABS: Magnesium 1.9 mg/dL (1.6-2.6); Phosphorous 3.9 mg/dL (2.7-4.5)
[2021-04-28] MEDS: *HR* Enoxaparin 30 MG/0.3 ML SYRINGE SQ SCH (05:48)
[2021-04-28] MEDS ORDERED: Dextrose Gel 15 GM/37.5 ML TUBE PO PRN ×2 (07:32)
[2021-04-28] MEDS ORDERED: D5% in Water 1,000 ML IVC PRN (07:32)
[2021-04-28] MEDS ORDERED: Melatonin 3 MG TABLET PO PRN (07:32)
[2021-04-28] MEDS ORDERED: Ipratropium/Albuterol Neb 3 ML IH PRN (07:32)
[2021-04-28] MEDS ORDERED: Naloxone 0.4 MG/ML INJ IVP PRN (07:32)
[2021-04-28] MEDS ORDERED: Ondansetron 4 MG/2 ML VIAL IVP PRN (07:32)
[2021-04-28] MEDS ORDERED: *HR* OxyCODONE Immed Rel 5 MG TABLET PO PRN (07:32)
[2021-04-28] MEDS ORDERED: Acetaminophen 325 MG TABLET PO PRN (07:32)
[2021-04-28] MEDS: Cyanocobalamin (B-12) 1,000 MCG TABLET PO SCH ×2 (08:48→19:52)
[2021-04-28] MEDS: Vitamin B Complex/Vit C/Vit E 1 EACH TABLET PO SCH (08:49)
[2021-04-28] MEDS: Nystatin SUSP 5 ML UD.LIQ PO SCH ×4 (08:49→19:51)
[2021-04-28] MEDS: Folic Acid 1 MG TABLET PO SCH (08:50)
[2021-04-28] MEDS: Thiamine (B-1) 100 MG TABLET PO SCH (08:50)
[2021-04-28] MEDS: Gabapentin 400 MG CAPSULE PO SCH ×3 (08:50→19:52)
[2021-04-28] MEDS: Lactobacillus 1 EACH CAP.SPRINK PO SCH ×2 (08:50→19:52)
[2021-04-28] MEDS: Nicotine 21 MG PATCH.TD24 TD SCH (08:51)
[2021-04-28] MEDS ORDERED: Doxycycline 100 MG CAPSULE PO SCH (09:00)
[2021-04-28] MEDS ORDERED: levoFLOXacin 750 MG TABLET PO SCH (09:00)
[2021-04-28 10:44] LABS: Hemoglobin 13.1 g/dL (11.5-15.4)
[2021-04-28 10:45] LABS: Nucleated Red Blood Cells 0.8 /100 WBC (0)
[2021-04-28 10:46] LABS: Mean Corpuscular HGB Conc 33.6 g/dL (31.6-35.5); Mean Corpuscular Hemoglobin 32.7 pg (28.0-33.3); Mean Corpuscular Volume 97.3 fL (83.0-100.0); Mean Platelet Volume 10.9 fL (9.4-12.4); Platelet Count 262 K/mcL (140-400); Red Blood Count 4.01 M/mcL (3.82-4.97); Red Cell Distribution Width 15.7 % (11.5-14.5); White Blood Count 27.5 K/mcL (4.3-11.1)
[2021-04-28 11:03] LABS: Calcium 8.9 mg/dL (8.6-10.3); Potassium 4.5 mEq/L (3.5-5.1)
[2021-04-28 11:33] LABS: Lymphocytes # 2.2 K/mcL (0.6-4.6); Monocytes # 0.6 K/mcL (0.0-1.3); Neutrophils # 24.8 K/mcL (1.6-8.9); Platelet Estimate Normal (Normal)
[2021-04-28] MEDS: *HR* Dextrose 50 % in Water (Syg) 50 ML SYRINGE IVP PRN ×3 (12:24→23:15)
[2021-04-28] MEDS: Albumin Human 5% 12.5 GM/250 ML IV.SOLN IVC SCH ×2 (12:28→16:25)
[2021-04-28] MEDS ORDERED: Norepinephrine 4 MG/254 ML IV.SOLN IVC ONE (14:48)
[2021-04-28] MEDS ORDERED: Artificial Tears SOLN 15 ML BOTTLE BOTH EYES PRN (15:05)
[2021-04-28] MEDS: Norepinephrine 4 MG/254 ML IV.SOLN IVC SCH ×2 (15:34→20:13)
[2021-04-28] MEDS: FentaNYL (PF) 1,000 MCG/100 ML IV.SOLN IVC SCH ×2 (15:35→23:20)
[2021-04-28] MEDS ORDERED: Phenylephrine 10 MG in 0.9 % Sodium Chloride 250 ML IVC SCH (16:00)
[2021-04-28] MEDS ORDERED: Ringers Solution, Lactated 500 ML IVC ONE (16:01)
[2021-04-28] MEDS: Piperacillin/Tazobactam 3.375 GM in 0.9 % Sodium Chloride Mini Bag 100 ML IVPB SCH ×3 (16:18→23:46)
[2021-04-28] MEDS: Artificial Tears SOLN 15 ML BOTTLE BOTH EYES SCH ×3 (16:27→23:58)
[2021-04-28] MEDS: Vasopressin 40 UNIT in D5% in Water 100 ML IVC SCH (16:35)
[2021-04-28 16:51] LABS: ABG Base Excess -12 mEq/L (-2 to 3); ABG HCO3 16 mEq/L (21-27); ABG Oxygen Saturation 100 % (95-98); ABG PCO2 41 mmHg (35-45); ABG PH 7.19 pH Units (7.32-7.45); ABG PO2 370 mmHg (85-104); ABG TCO2 17 mEq/L (20-26); Blood Gas VT 400 cc
[2021-04-28] MEDS: Pantoprazole 40 MG VIAL IVP SCH (17:41)
[2021-04-28] MEDS ORDERED: Phenylephrine 50 MG in 0.9 % Sodium Chloride 250 ML IVC SCH (17:45)
[2021-04-28] MEDS: Chlorhexidine Rinse 15 ML MOUTHWASH MM SCH (19:51)
[2021-04-28] MEDS ORDERED: Sodium Bicarbonate 150 MEQ in D5% in Water 1,000 ML IVC SCH (23:30)
[2021-04-28] MEDS: Norepinephrine 8 MG in D5% in Water 250 ML IVC SCH (23:39)
[2021-04-28] MEDS: Phenylephrine 50 MG in D5% in Water 250 ML IVC SCH (23:42)
[2021-04-29] MEDS: Norepinephrine 8 MG in D5% in Water 250 ML IVC SCH ×3 (03:40→12:32)
[2021-04-29] MEDS: Artificial Tears SOLN 15 ML BOTTLE BOTH EYES SCH ×4 (03:47→15:16)
[2021-04-29 04:37] LABS: Calcium 7.6 mg/dL (8.6-10.3); Potassium 5.9 mEq/L (3.5-5.1)
[2021-04-29 05:17] LABS: Magnesium 2.2 mg/dL (1.6-2.6); Phosphorous 6.8 mg/dL (2.7-4.5)
[2021-04-29 05:19] LABS: Basophils % 0.1 %; Eosinophils # 0.1 K/mcL (0.0-0.6); Eosinophils % 0.2 %; Hematocrit 31.6 % (35.3-44.9); Hemoglobin 9.6 g/dL (11.5-15.4); Immature Granulocytes % 4.7 % (0-4); Lymphocytes # 1.6 K/mcL (0.6-4.6); Lymphocytes % 4.8 %; Mean Corpuscular HGB Conc 30.4 g/dL (31.6-35.5); Mean Corpuscular Volume 105.3 fL (83.0-100.0); Mean Platelet Volume 11.2 fL (9.4-12.4); Monocytes # 0.5 K/mcL (0.0-1.3); Monocytes % 1.4 %; Nucleated Red Blood Cells 2.1 /100 WBC (0); Platelet Count 154 K/mcL (140-400); Red Cell Distribution Width 16.3 % (11.5-14.5); Segmented Neutrophils % 88.8 %
[2021-04-29 05:32] LABS: White Blood Count 32.6 K/mcL (4.3-11.1)
[2021-04-29 05:47] LABS: ABG Base Excess -14 mEq/L (-2 to 3); ABG HCO3 16 mEq/L (21-27); ABG Oxygen Saturation 100 % (95-98); ABG PCO2 51 mmHg (35-45); ABG PH 7.09 pH Units (7.32-7.45); ABG PO2 311 mmHg (85-104); ABG TCO2 17 mEq/L (20-26); Blood Gas Modality AF; Blood Gas VT 400 cc
[2021-04-29 05:50] LABS: Platelet Estimate Normal (Normal)
[2021-04-29] MEDS ORDERED: *HR* Enoxaparin 30 MG/0.3 ML SYRINGE SQ SCH (06:00)
[2021-04-29] MEDS: Phenylephrine 50 MG in D5% in Water 250 ML IVC SCH ×2 (07:09→15:10)
[2021-04-29] MEDS: Nystatin SUSP 5 ML UD.LIQ PO SCH ×2 (07:55→12:32)
[2021-04-29] MEDS: Pantoprazole 40 MG VIAL IVP SCH (07:55)
[2021-04-29] MEDS: Chlorhexidine Rinse 15 ML MOUTHWASH MM SCH (07:55)
[2021-04-29] MEDS: Vitamin B Complex/Vit C/Vit E 1 EACH TABLET PO SCH (07:56)
[2021-04-29] MEDS: Nicotine 21 MG PATCH.TD24 TD SCH (07:56)
[2021-04-29] MEDS: Piperacillin/Tazobactam 3.375 GM in 0.9 % Sodium Chloride Mini Bag 100 ML IVPB SCH (07:56)
[2021-04-29] MEDS: Cyanocobalamin (B-12) 1,000 MCG TABLET PO SCH (07:57)
[2021-04-29] MEDS: Lactobacillus 1 EACH CAP.SPRINK PO SCH (07:57)
[2021-04-29] MEDS: Thiamine (B-1) 100 MG TABLET PO SCH (07:57)
[2021-04-29] MEDS: Gabapentin 400 MG CAPSULE PO SCH (07:57)
[2021-04-29] MEDS: Folic Acid 1 MG TABLET PO SCH (07:57)
[2021-04-29] MEDS: FentaNYL (PF) 1,000 MCG/100 ML IV.SOLN IVC SCH (10:22)
[2021-04-29] MEDS: Vasopressin 40 UNIT in D5% in Water 100 ML IVC SCH (10:23)
[2021-04-29] MEDS ORDERED: Perflutren Lipid Microsphere 1.3 ML in 0.9 % Sodium Chloride 8.7 ML IVP PRN (10:31)
[2021-04-29] MEDS: Calcium Gluconate 1gm/50mL 1 GM/50 ML BAG IVPB SCH ×2 (12:32→13:49)
[2021-04-29 12:43] VITALS: TEMP 97.2
[2021-04-29 13:01] LABS: Hematocrit 29.9 % (35.3-44.9); Hemoglobin 9.1 g/dL (11.5-15.4)
[2021-04-29 13:03] LABS: VBG Ionized Calcium 1.04 mmol/L (1.15-1.35)
[2021-04-29 13:20] LABS: Calcium 7.2 mg/dL (8.6-10.3); Potassium 6.4 mEq/L (3.5-5.1)
[2021-04-29] MEDS ORDERED: Ringers Solution, Lactated 1,000 ML IVC ONE ×2 (13:56→15:33)
[2021-04-29 14:22] LABS: ABG Base Excess -22 mEq/L (-2 to 3); ABG HCO3 8 mEq/L (21-27); ABG Oxygen Saturation 77 % (95-98); ABG PCO2 35 mmHg (35-45); ABG PH 6.97 pH Units (7.32-7.45); ABG PO2 64 mmHg (85-104); ABG TCO2 9 mEq/L (20-26); Blood Gas VT 400 cc
[2021-04-29 15:16] VITALS: O2SAT 100
[2021-04-29] MEDS ORDERED: Ringers Solution, Lactated 1,000 ML ONE (15:37)
[2021-04-29 17:00] VITALS: BP 131/64; PULSE 70
[2021-04-29] MEDS ORDERED: Pantoprazole 40 MG VIAL IVP SCH (18:00)
[2021-04-29] MEDS ORDERED: *HR* LORazepam 2 MG/ML VIAL IVP PRN (18:05)
== END 2021-04-29 19:32 | disposition expired | DRG 853 ==
LOC: SUATTDRO → 2ANU 13:04 → EMEROOARM 13:04 → 2ANU 21:51 → SUATTDRO 04-22 11:52 → ICNU 04-27 21:44
PROVIDERS: ADMIT Internal Medicine; ATTEND Internal Medicine